=== PATIENT | female | born 1975 | race Caucasian/White ===

== ENCOUNTER 2016-09-21 17:35 | Emergency (ER) ==
[2016-09-21 17:46] VITALS: BP 169/118; TEMP 98.9; BMI 28.8
[2016-09-21] MEDS ORDERED: TRANDATE IVP STA (18:00)
[2016-09-21 18:19] LABS: BASOPHILS % (AUTO) 0.4 % (0.0-3.0); EOSINOPHILS # (AUTO) 0.1 K/ul (0.0-0.7); EOSINOPHILS % (AUTO) 1.3 % (0.0-7.0); HEMATOCRIT 39.8 % (37.0-47.0); IMMATURE GRANULOCYTE % (AUTO) 0.5 % (0.0-5.0); LYMPHOCYTES # (AUTO) 2.5 K/uL (0.60-3.4); LYMPHOCYTES % (AUTO) 24.7 (10.0-50.0); MEAN CORPUSCULAR HEMOGLOBIN 33.1 pg (27.0-31.0); MEAN CORPUSCULAR HGB CONC 35.2 (31.8-35.4); MEAN CORPUSCULAR VOLUME 94.1 fl (81.0-99.0); MONOCYTES # (AUTO) 0.6 K/uL (0.4-2.0); MONOCYTES % (AUTO) 6.1 (0-10); NEUTROPHILS # (AUTO) 6.8 K/ul (2.0-6.9); PLATELET COUNT 213 10^3/uL (140-440); RED BLOOD COUNT 4.23 10^6/ul (4.20-5.40); WHITE BLOOD COUNT 10.15 K/ul (4.6-10.2)
--- NOTE | 2016-09-21 18:29 | ED.PDOC ---
General Stated Complaint: my bp is up--dr clemens started me on benicar--my bp is up Time Seen by Physician: 17:40 Mode of Arrival: Walk-In Information Source: Patient Exam Limitations: No limitations Nursing and Triage Documentation Reviewed and Agree: Yes <EHSAN CANALES - Last Filed: 09/21/16 18:53> <FRANKLYN MOELLER - Last Filed: 09/21/16 20:53> ED Provider: Dr. FRANKLYN MOELLER ([facility]) (FRANKLYN MOELLER) Chief Complaint: Palpitations Primary Care Provider: ANJU BEAN ([facility]) (FRANKLYN MOELLER) Cardiovascular Complaint Exam - Palpitations Complaint/Exam Onset/Duration: today Symptoms Are: Still present Timing: Constant Initial Severity: Mild Current Severity: Mild Character: Reports: Fast, Pounding Aggravating: Reports: None Alleviating: Reports: None Associated Signs and Symptoms: Denies: Lightheadedness, Dizziness, Syncope, Chest pain, Shortness of breath, Nausea, Vomiting Cardiac Risk Factors: Reports: Hypertension Pulmonary Embolism Risk Factors: Reports: None Atrial Fibrillation Risk Factors: Reports: None Thyroid Exam: Normal Differential Diagnoses: Mitral Valve Prolapse, Hypokalemia Quality Indicator For Non-Traumatic Chest Pain/Syncope: EKG Performed <EHSAN CANALES - Last Filed: 09/21/16 18:53> Review of Systems - Review Of Systems Constitutional: Reports: No symptoms Eyes: Reports: No symptoms Ears, Nose, Mouth, Throat: Reports: No symptoms Respiratory: Reports: No symptoms Cardiac: Reports: Palpitations GI: Reports: No symptoms : Reports: No symptoms Musculoskeletal: Reports: No symptoms Skin: Reports: No symptoms Neurological: Reports: No symptoms Endocrine: Reports: No symptoms Hematologic/Lymphatic: Reports: No symptoms All Other Systems: Reviewed and Negative <EHSAN CANALES - Last Filed: 09/21/16 18:53> Past Medical History - Past Medical History Endocrine: Reports: Unknown Cardiovascular: Reports: Unknown Respiratory: Reports: Unknown Hematological: Reports: Unknown Gastrointestinal: Reports: Unknown Genitourinary: Reports: Unknown Neuro/Psych: Reports: Unknown Musculoskeletal: Reports: Unknown Cancer: Reports: Unknown Last Menstrual Period: alonso-7 yrs - Surgical History General Surgical History: Reports: Unknown - Family History Family History: Reports: Unknown - Social History Smoking Status: Never smoker Alcohol Screening: Occasionally Lives: With family <EHSAN CANALES - Last Filed: 09/21/16 18:53> Physical Exam - Physical Exam Appearance: Well-appearing, No pain distress, Well-nourished Eyes: CLARISA ENT: Ears normal Neck: Supple Respiratory: Airway patent, Breath sounds clear, Breath sounds equal, Respirations nonlabored Cardiovascular: Tachycardia GI/: Soft, Nontender, No masses, Bowel sounds normal, No Organomegaly Musculoskeletal: Normal strength, ROM intact, No edema, No calf tenderness Skin: Warm Neurological: Sensation intact, Motor intact, Reflexes intact, Cranial nerves intact, Alert, Oriented Psychiatric: Affect appropriate, Anxious <EHSAN CANALES - Last Filed: 09/21/16 18:53> Re-Evaluation - Re-Evaluation Time of Re-Evaluation: 20:51 Status: Improved <FRANKLYN MOELLER - Last Filed: 09/21/16 20:53> Physician Notification - Case Discussed Physician Notified: dr moeller Time of Notification: 18:52 <EHSAN CANALES - Last Filed: 09/21/16 18:53> Critical Care Note - Critical Care Note Total Time (mins): 0 <FRANKLYN MOELLER - Last Filed: 09/21/16 20:53> Course - Course Hematology/Chemistry: 09/21/16 18:13 <EHSAN CANALES - Last Filed: 09/21/16 18:53> - Course Hematology/Chemistry: 09/21/16 18:13 09/21/16 18:13 <FRANKLYN MOELLER - Last Filed: 09/21/16 20:53> - Course Orders, Labs, Meds: Lab Review 09/21/16 09/21/16 09/21/16 18:13 18:15 19:05 WBC 10.15 RBC 4.23 Hgb 14.0 Hct 39.8 MCV 94.1 MCH 33.1 H MCHC 35.2 RDW Coeff of Ava 12.4 Plt Count 213 Immature Gran % (Auto) 0.5 Neut % (Auto) 67.0 Lymph % (Auto) 24.7 [place] % (Auto) 6.1 Eos % (Auto) 1.3 Baso % (Auto) 0.4 Immature Gran # (Auto) 0.1 Neut # 6.8 Lymph # 2.5 [place] # 0.6 Eos # 0.1 Baso # 0.0 D-Dimer 0.19 Sodium 140 Potassium 3.7 Chloride 106 Carbon Dioxide 22 Anion Gap 15.7 BUN 7 Creatinine 0.94 Estimated GFR (MDRD) 66.00 BUN/Creatinine Ratio 7.44 Glucose 129 H Calcium 9.5 Total Bilirubin 0.41 AST 21 ALT 37 Alkaline Phosphatase 80 Total Creatine Kinase 72 Troponin I < 0.0100 Total Protein 7.3 Albumin 4.2 Globulin 3.1 Albumin/Globulin Ratio 1.35 TSH 1.495 Free T4 1.05 Serum , Qual Negative Urine Color Yellow Urine Clarity Clear Urine pH 6.5 Ur Specific [place] 1.010 Urine Protein Negative Urine Glucose (UA) Negative Urine Ketones Negative Urine Blood Negative Urine Nitrite Negative Urine Bilirubin Negative Urine Urobilinogen 0.2 Ur Leukocyte Esterase Negative Urine Opiates Screen Negative Ur Oxycodone Screen Negative Urine Methadone Screen Negative Ur Propoxyphene Screen Negative Ur Barbiturates Screen Negative U Tricyclic Antidepress Negative Ur Phencyclidine Scrn Negative Ur Amphetamine Screen Negative U Methamphetamines Scrn Negative U Benzodiazepines Scrn Negative Urine Cocaine Screen Negative U Cannabinoids Screen Negative Orders Category Date Time Status EKG-(ED ONLY) Stat CARDIO 09/21/16 17:58 Completed Event Executive [ED JOINT YARNER APPLIED] .ONCE EMERGENCY 09/21/16 17:59 Active IV [ED IV/MEDIPORT/POWERPORT] .ONCE EMERGENCY 09/21/16 17:59 Active CBC W/ AUTO DIFF Stat LAB 09/21/16 18:13 Completed COMPREHENSIVE METABOLIC PANEL Stat LAB 09/21/16 18:13 Completed CREATINE KINASE Stat LAB 09/21/16 18:13 Completed D-DIMER Stat LAB 09/21/16 18:13 Completed FREE T4 (FREE THYROXINE) Stat LAB 09/21/16 18:13 Completed SERUM Stat LAB 09/21/16 18:15 Completed TROPONIN I Stat LAB 09/21/16 18:13 Completed TSH [THYROID STIMULATING HORMONE] Stat LAB 09/21/16 18:13 Completed URINALYSIS C & S IF INDICATED Stat LAB 09/21/16 19:05 Completed URINE DRUG SCREEN (RAPID FOR ED) [DRUG SCREEN, URINE, LAB 09/21/16 19:05 Completed RAPID] Stat 0.9 % Sodium Chloride [Saline Flush] MEDS 09/21/16 17:59 Active 1 syr IVF PRN PRN Alprazolam [Xanax] MEDS 09/21/16 20:12 Discontinued 0.25 mg PO ONCE STA Clonidine HCl [Catapres] MEDS 09/21/16 18:52 Discontinued 0.1 mg PO ONCE STA Labetalol HCl [Trandate] MEDS 09/21/16 18:00 Discontinued 20 mg IVP ONCE STA Medications Generic Name Dose Route Start Last Admin Trade Name Freq PRN Reason Stop Dose Admin Sodium Chloride 1 syr 09/21/16 17:59 09/21/16 18:18 Saline Flush IVF 1 syr PRN PRN Administration To flush IV Discontinued Medications Generic Name Dose Route Start Last Admin Trade Name Freq PRN Reason Stop Dose Admin Alprazolam 0.25 mg 09/21/16 20:12 09/21/16 20:26 Xanax PO 09/21/16 20:13 0.25 mg ONCE STA Administration Clonidine 0.1 mg 09/21/16 18:52 09/21/16 19:05 Catapres PO 09/21/16 18:53 0.1 mg ONCE STA Administration Labetalol HCl 20 mg 09/21/16 18:00 09/21/16 18:28 Trandate IVP 09/21/16 18:01 20 mg ONCE STA Administration (EHSAN CANALES) (FRANKLYN MOELLER) Vital Signs: Temp Pulse Resp BP Pulse Ox 09/21/16 17:36 98.9 F 113 H 20 169/118 H 97 (EHSAN CANALES) (FRANKLYN MOELLER) Departure <EHSAN CANALES - Last Filed: 09/21/16 18:53> - Departure Time of Disposition: 20:53 Pt referred to PMD for follow-up: Yes Disposition Discussed With: Patient, Family <FRANKLYN MOELLER - Last Filed: 09/21/16 20:53> - Departure Disposition: HOME SELF-CARE Discharge Problem: Palpitations Hypertension Qualifiers: Hypertension type: essential hypertension Qualifier Code: (I10) Essential ( primary) hypertension Instructions: Palpitations (ED) Condition: Stable Additional Instructions: Keepc checking the blood pressure prn may need Holter as out patient for the Palpitation Prescriptions: Hydrochlorothiazide 12.5 mg PO DAILY #20 capsule Allergies/Adverse Reactions: Allergies Sulfa (Sulfonamide Antibiotics) Adverse Reaction (Verified 09/21/16 17:44) tuberculin, purified protein deriva [From Aplisol] Adverse Reaction (Verified 17:44) Home Medications: Ambulatory Orders Calcium Carbonate [Calcium] 600 mg PO BID 09/21/16 Calcium Polycarbophil [Fiber-Caps] 625 mg PO BID 09/21/16 Cholecalciferol (Vitamin D3) [Vitamin D3] 1,000 unit PO DAILY 09/21/16 Diphenhydramine HCl [Benadryl] 50 mg PO BEDTIME 09/21/16 Hydrochlorothiazide 12.5 mg PO DAILY #20 capsule 09/21/16 Magnesium Oxide [Mag-Ox] 400 mg PO BID 09/21/16 Melatonin 6 mg PO BEDTIME 09/21/16 Olmesartan Medoxomil [Benicar] 40 mg PO DAILY 09/21/16 Omeprazole [Prilosec] 40 mg PO BID 09/21/16 Orphenadrine Citrate [Norflex] 400 mg PO BID 09/21/16 Zolpidem Tartrate [Ambien] 5 mg PO BEDTIME 09/21/16
[2016-09-21 18:35] LABS: SERUM PREGNANCY INTERNAL QC INTERNAL QC VALID
[2016-09-21] MEDS ORDERED: CATAPRES PO STA (18:52)
[2016-09-21 18:58] LABS: ALANINE AMINOTRANSFERASE 37 U/L (12-78); ALBUMIN 4.2 g/dL (3.4-5.0); ALBUMIN/GLOBULIN RATIO 1.35; ALKALINE PHOSPHATASE 80 U/L (42-98); ANION GAP 15.7; ASPARTATE AMINO TRANSFERASE 21 U/L (15-37); BILIRUBIN,TOTAL 0.41 mg/dL (0.00-1.20); BLOOD UREA NITROGEN 7 mg/dL (7-18); BUN/CREATININE RATIO 7.44; CALCIUM 9.5 mg/dL (8.2-10.2); CARBON DIOXIDE 22 mmol/L (21-32); CHLORIDE 106 mmol/L (98-107); CREATINE KINASE 72 U/L; CREATININE 0.94 mg/dL (0.60-1.30); GLUCOSE 129 mg/dL (70-110); POTASSIUM 3.7 mmol/L (3.5-5.10); SODIUM 140 mmol/L (136-145); TOTAL PROTEIN 7.3 g/dL (6.4-8.2)
[2016-09-21 19:21] LABS: BILIRUBIN,URINE Negative (NEGATIVE); KETONES,URINE Negative (NEGATIVE); LEUKOCYTE ESTERASE ,URINE Negative (NEGATIVE); NITRITE,URINE Negative (NEGATIVE); PH,URINE 6.5 (5-9); PROTEIN,URINE Negative (NEGATIVE); URINE, BLOOD Negative (NEGATIVE)
[2016-09-21 19:22] LABS: ADD URINE MICROSCOPIC NO
[2016-09-21 19:44] LABS: COCAIN SCREEN,URINE NEGATIVE (NEGATIVE)
[2016-09-21] MEDS ORDERED: XANAX PO STA (20:12)
== END 2016-09-21 21:03 | disposition home or self-care (01) ==
LOC: ED 17:35
DX: R00.2 Palpitations (principal); I10 Essential (primary) hypertension; Z79.899 Other long term (current) drug therapy
CPT/HCPCS: 36415; 80053; 80306; 81001; 82550; 84439; 84443; 84484; 84703; 85025; 85379; 93005; 93010; 96374; 99284

== ENCOUNTER 2017-12-05 20:54 | Inpatient (IN) ==
[2017-12-05] MEDS ORDERED: PHENERGAN 25 MG/ML VIAL 25 MG in SODIUM CHLORIDE 50 ML IV STA (21:21)
[2017-12-05] MEDS ORDERED: SODIUM CHLORIDE 1,000 ML IV STA (21:21)
[2017-12-05] MEDS ORDERED: PHENERGAN 25 MG/ML VIAL ONE (21:32)
--- NOTE | 2017-12-05 22:03 | ED.PDOC ---
General ED Provider: Dr. FRANKLYN MOELLER Chief Complaint: Diarrhea Stated Complaint: Came for the nausea and diarrhea for 2 days,. started feeling abdominal cramping yet work aoroud noon, yesterday, followed by nausea, diarrhea watery, more than 5 time, was taking zofran for nausea, did not vomit, and today morning she was not able eat or drink, every time she drink she had diarrhea. now started hurting in the head, muscle cramps in legs, came for the evaluation. Time Seen by Physician: 21:10 Mode of Arrival: Walk-In Information Source: Patient Primary Care Provider: ANJU BEAN Nursing and Triage Documentation Reviewed and Agree: Yes Reviewed sepsis parameters & appropriate labs ordered?: No System Inflammatory Response Syndrome: Not Applicable Sepsis Protocol: For patient's 13 years and over: Temp is 96.8 and below OR 101 and greater Pulse >90 BPM Resp >20/minute Acutely Altered Mental Status Are patient's symptoms suggestive of a new infection, such as: -Pneumonia -Skin, Soft Tissue -Endocarditis -UTI -Bone, Joint Infection -Implantable Device -Acute Abdominal Infection -Wound Infection -Meningitis -Blood Stream Catheter Infection -Unknown GI Complaint Exam - Vomiting/Diarrhea Complaint/Exam Symptoms Are: Resolved Episodes of Vomiting over last 24 Hours: 0 Episodes of Diarrhea Over Last 24 Hours: 5 Initial Severity: Moderate Current Severity: Moderate Character of Diarrhea: Reports: Watery Aggravating: Reports: Food, Liquids Alleviating: Reports: None Associated Signs and Symptoms: Reports: Light-headedness, Cramping. Denies: Dizziness, Melena, Hematemesis, Fever, Abdominal pain Recent Positive Test: No Use of Depoprovera: No (IUD) Non-GI Risk Factors: Reports: None Surgical Obstruction Risk Factors: Reports: None Related Surgical History: Reports: None Abdominal Findings: Absent: Pulsatile mass, Abdominal distention, Unequal femoral pulses, Rebound tenderness, CVA Tenderness Differential Diagnoses: Viral Gastroenteritis, Bacterial Gastroenteritis, Pancreatitis Review of Systems - Review Of Systems Constitutional: Reports: Malaise, Weakness Eyes: Reports: No symptoms Ears, Nose, Mouth, Throat: Reports: No symptoms Respiratory: Reports: No symptoms Cardiac: Reports: No symptoms GI: Reports: Diarrhea, Vomiting : Reports: No symptoms Musculoskeletal: Reports: No symptoms Skin: Reports: No symptoms Neurological: Reports: No symptoms Endocrine: Reports: No symptoms Hematologic/Lymphatic: Reports: No symptoms All Other Systems: Reviewed and Negative Past Medical History - Past Medical History Previously Healthy: Yes Endocrine: Reports: Unknown Cardiovascular: Reports: Hypertension Respiratory: Reports: Unknown Hematological: Reports: Unknown Gastrointestinal: Reports: Unknown Genitourinary: Reports: Unknown Neuro/Psych: Reports: Migraine Musculoskeletal: Reports: Other (connective tissue disorder.) Cancer: Reports: Unknown Last Menstrual Period: na - Surgical History General Surgical History: Reports: Tonsillectomy, Orthopedic (left rotator cuff surgery, left foot surgery.), Other (bladder slig, breast reduction surgery.) - Family History Family History: Reports: Unknown - Social History Smoking Status: Never smoker Hx Substance Use: No Alcohol Screening: Occasionally - Immunizations Tetanus Shot up to Date: No Physical Exam - Physical Exam Appearance: Ill-appearing Eyes: CLARISA, EOMI, Conjunctiva clear ENT: Ears normal, Nose normal, Oropharynx normal Respiratory: Airway patent, Breath sounds clear, Breath sounds equal, Respirations nonlabored Cardiovascular: RRR, Pulses normal, No rub, No murmur GI/: Soft, No masses, Bowel sounds normal, No Organomegaly, Tender, Bowel sounds hyperactive Musculoskeletal: Normal strength, ROM intact, No edema, No calf tenderness Skin: Warm, Dry, Normal color Neurological: Sensation intact, Motor intact, Reflexes intact, Cranial nerves intact, Alert, Oriented Psychiatric: Affect appropriate, Mood appropriate Interpretation - Radiology Interpretation Radiology Interpretation By: Radiologist Radiology Results: Positive Exam Interpreted: CT Scan Critical Care Note - Critical Care Note Total Time (mins): 30 Course - Course Hematology/Chemistry: 12/05/17 21:47 12/05/17 21:47 Orders, Labs, Meds: Lab Review 12/05/17 12/05/17 21:47 21:47 WBC 13.56 H RBC 4.64 Hgb 15.1 Hct 42.0 MCV 90.5 MCH 32.5 H MCHC 36.0 H RDW Coeff of Ava 12.6 Plt Count 223 Immature Gran % (Auto) 0.3 Neut % (Auto) 72.5 Lymph % (Auto) 19.8 [place] % (Auto) 6.0 Eos % (Auto) 1.1 Baso % (Auto) 0.3 Immature Gran # (Auto) 0.0 Neut # (Auto) 9.8 H Lymph # (Auto) 2.7 [place] # (Auto) 0.8 Eos # (Auto) 0.2 Baso # (Auto) 0.0 Sodium 137 Potassium 3.7 Chloride 105 Carbon Dioxide 21 Anion Gap 14.7 BUN 15 Creatinine 0.86 Estimated GFR (MDRD) 72.00 BUN/Creatinine Ratio 17.44 Glucose 83 Calcium 10.8 H Total Bilirubin 0.9 AST 15 ALT 18 Alkaline Phosphatase 78 Total Protein 7.9 Albumin 4.3 Globulin 3.6 Albumin/Globulin Ratio 1.19 Amylase 66 Lipase 27 Orders Category Date Time Status ED IV/MEDIPORT/POWERPORT .ONCE EMERGENCY 12/05/17 21:21 Active AMYLASE Stat LAB 12/05/17 21:47 Completed CBC W/ AUTO DIFF Stat LAB 12/05/17 21:47 Completed COMPREHENSIVE METABOLIC PANEL Stat LAB 12/05/17 21:47 Completed LIPASE Stat LAB 12/05/17 21:47 Completed UA [URINALYSIS C & S IF INDICATED] Stat LAB 12/05/17 22:14 Uncollected 0.9 % Sodium Chloride [Saline Flush] MEDS 12/05/17 21:21 Ordered 1 syr IVF PRN PRN Ceftriaxone Sodium [Rocephin] 1 gm MEDS 12/05/17 22:45 Active 0.9 % Sodium Chloride [Sodium Chloride] 50 ml IV ONCE Ketorolac Tromethamine [Toradol] MEDS 12/05/17 22:18 Discontinued 30 mg IVP ONCE STA Promethazine HCl [Phenergan 25 mg/ml Vial] MEDS 12/05/17 21:32 Discontinued 25 mg .ROUTE .STK-MED ONE Promethazine HCl [Phenergan 25 mg/ml Vial] 25 mg MEDS 12/05/17 21:21 Discontinued 0.9 % Sodium Chloride [Sodium Chloride] 50 ml IV ONCE Sodium Chloride 0.9% [Sodium Chloride] 1,000 ml MEDS 12/05/17 21:[address] ABDOMEN/PELVIS WO CONTRAST Stat RADS 12/05/17 21:21 Completed Medications Generic Name Dose Route Start Last Admin Trade Name Freq PRN Reason Stop Dose Admin Ceftriaxone Sodium 1 gm/ 50 mls @ 75 mls/hr 12/05/17 22:45 Sodium Chloride IV 12/05/17 23:24 ONCE STA Sodium Chloride 1 syr 12/05/17 21:21 12/05/17 22:23 Saline Flush IVF 1 syr PRN PRN Administration To flush IV Discontinued Medications Generic Name Dose Route Start Last Admin Trade Name [place] PRN Reason Stop Dose Admin Promethazine HCl 25 mg/ Sodium 51 mls @ 75 mls/hr 12/05/17 21:21 12/05/17 22: 02 Chloride IV 12/05/17 22:01 75 mls/hr ONCE STA Administration Sodium Chloride 1,000 mls @ 1,000 mls/hr 12/05/17 21:21 12/05/17 22:01 Sodium Chloride IV 12/05/17 22:20 1,000 mls/hr BOLUS STA Administration Ketorolac Tromethamine 30 mg 12/05/17 22:18 12/05/17 22:22 Toradol IVP 12/05/17 22:19 30 mg ONCE STA Administration Vital Signs: Temp Pulse Resp BP Pulse Ox 12/05/17 20:55 99.2 F 84 20 145/88 H 96 Departure - Departure Time of Disposition: 22:58 Disposition: ADMITTED INPATIENT Discharge Problem: Gastroenteritis, Dehydration Instructions: Dehydration (ED) Condition: Stable Pt referred to PMD for follow-up: Yes IPMP verified?: No Allergies/Adverse Reactions: Allergies Sulfa (Sulfonamide Antibiotics) Adverse Reaction (Verified 12/05/17 21:01) tuberculin, purified protein deriva [From Aplisol] Adverse Reaction (Verified 21:01) Home Medications: Ambulatory Orders Cholecalciferol (Vitamin D3) [Vitamin D3] 1,000 unit PO DAILY 09/21/16 Diphenhydramine HCl [Benadryl] 50 mg PO BEDTIME 09/21/16 Magnesium Oxide [Mag-Ox] 400 mg PO BID 09/21/16 Melatonin 6 mg PO BEDTIME 09/21/16 Orphenadrine Citrate [Norflex] 400 mg PO BID 09/21/16 Zolpidem Tartrate [Ambien] 5 mg PO BEDTIME 09/21/16 Ranitidine HCl [Zantac] 150 mg PO DAILY 12/05/17 Disposition Discussed With: Patient
[2017-12-05] MEDS ORDERED: DEMEROL 25 MG/ML VIAL IVP STA (22:14)
[2017-12-05] MEDS ORDERED: TORADOL IVP STA (22:18)
--- NOTE | 2017-12-05 22:30 | CT ---
EXAM: CT scan abdomen pelvis without contrast HISTORY: Abdominal pain diarrhea COMPARISON: None. FINDINGS: Contiguous axial images obtained from lung bases to the symphysis pubis without contrast u tilizing 3-mm collimation. Sagittal and coronal reconstructions were imaged and reviewed.. There is minimal bibasilar atelectasis. The gallbladder is contracted. The liver, pancreas, spleen and adre nal glands have normal unenhanced CT appearance. The kidneys morphologically normal. The abdominal aorta is normal in course caliber. There is normal appendix. There is an intrauterine device within the uterus.. Scattered diverticuli are seen in the left colon. There is questionable focal diverti culitis in the midsigmoid colon.. Bone windows reveals no evidence of lytic or blastic lesions Flui d is seen in the ascending and transverse colon compatible with diarrhea. IMPRESSION: Fluid is seen in the ascending and transverse colon compatible with diarrhea.. Scattered diverticula are seen in the left colon with questionable mild diverticulitis mid sigmoid co macrina. There is no free fluid. Intrauterine device is seen within the uterus.
[2017-12-05] MEDS ORDERED: ROCEPHIN 1 GM in SODIUM CHLORIDE 50 ML IV STA (22:45)
[2017-12-05] MEDS ORDERED: ROCEPHIN ONE (22:57)
[2017-12-05] MEDS ORDERED: TORADOL IVP PRN (23:04)
[2017-12-05] MEDS ORDERED: SODIUM CHLORIDE 1,000 ML IV SCH (23:30)
[2017-12-05] MEDS ORDERED: DILAUDID 2 MG/ML SYRINGE IVP PRN (23:37)
[2017-12-05] MEDS ORDERED: D5%-NS-KCL 20 MEQ/L IV SOL 1,000 ML IV SCH (23:45)
[2017-12-05] MEDS ORDERED: D5%-1/2NS-KCL 30 MEQ/L IV SOL 1,000 ML IV SCH (23:45)
[2017-12-05] MEDS ORDERED: [UNRECOGNIZED DRUG - MIXTURE] IV SCH (23:56)
[2017-12-06] MEDS ORDERED: POTASSIUM CHLORIDE 10 MEQ VIAL-ADDITIVE ONLY IV ONE (00:04)
[2017-12-06] MEDS ORDERED: DILAUDID 1 MG/ML SYRINGE ONE (00:05)
[2017-12-06] MEDS: ZOFRAN 4 MG/2 ML IVP SCH ×4 (00:12→18:00)
[2017-12-06] MEDS ORDERED: [UNRECOGNIZED DRUG - MIXTURE] IV SCH (00:13)
[2017-12-06 01:05] VITALS: BMI 26.3
[2017-12-06] MEDS ORDERED: DILAUDID 1 MG/ML SYRINGE IVP PRN ×2 (07:23→07:30)
[2017-12-06] MEDS ORDERED: [UNRECOGNIZED DRUG - MIXTURE] IV SCH (07:30)
[2017-12-06 17:32] VITALS: BP 119/81; TEMP 97.8
[2017-12-06] MEDS ORDERED: AMBIEN PO SCH (21:00)
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
== END 2017-12-06 18:20 | disposition home or self-care (01) | DRG 392 ==
LOC: ED 20:54 → MEDSURG A 23:08
PROVIDERS: ADMIT General Practice; ATTEND General Practice
DX: A08.4 Viral intestinal infection, unspecified (principal); E86.0 Dehydration; R50.9 Fever, unspecified; I10 Essential (primary) hypertension; G43.909 Migraine, unspecified, not intractable, without status migrainosus; G47.00 Insomnia, unspecified; Z87.448 Personal history of other diseases of urinary system; Z98.890 Other specified postprocedural states; Z79.899 Other long term (current) drug therapy
CPT/HCPCS: 36415; 80053; 81001; 82150; 83690; 84145; 85025; 86632; 87086; 96361; 96365; 96375; 99223; 99239; 99284

== ENCOUNTER 2018-12-11 14:05 | Outpatient (CLI) | END 2018-12-11 14:06 | disposition home or self-care (01) | LOC: LAB 14:05 | PROVIDERS: ATTEND Physician Assistant | DX: R00.2 Palpitations (principal) | CPT/HCPCS: 36415; 80048; 83735; 84439; 84443; 85025 ==